=== PATIENT | female | born 2000 | race Caucasian/White ===

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

== ENCOUNTER 2024-04-26 13:02 | Emergency (ER) | payer OTHER ==
[~2024-04-26] VITALS: Ht 157.5 cm; Wt 58.6 kg
[2024-04-26 13:07] VITALS: TEMP 98.5
[2024-04-26 15:26] LABS: COVID AG,FIA SOURCE NASAL SWAB
[2024-04-26 15:51] LABS: INFLUENZA TYPE A NEGATIVE FOR TYPE A (NEGATIVE); INFLUENZA TYPE B NEGATIVE FOR TYPE B (NEGATIVE); SARS-COV2 (COVID) ANTIGEN,FIA Negative (Negative)
[2024-04-26 16:45] VITALS: BP 118/64; PULSE 88; RESP 16; O2SAT 98
[2024-04-26] MEDS: SODIUM CHLORIDE 0.65% 44 ML NASAL SPRAY NASAL ONE (17:25)
== END 2024-04-26 17:26 | disposition home or self-care (01) ==
LOC: EMS 13:02
DX: J06.9 Acute upper respiratory infection, unspecified (principal); Z20.822 Contact with and (suspected) exposure to COVID-19
CPT/HCPCS: 87804; 99283